=== PATIENT | female | born 1995 | race Caucasian/White ===

== ENCOUNTER 2019-06-16 19:54 | Outpatient (CLI) | payer MEDICAID ==
[2019-06-16 20:31] LABS: AMORPHOUS SEDIMENT,URINE TRACE /HPF; APPEARANCE,URINE CLOUDY; BILIRUBIN,URINE NEGATIVE (NEGATIVE); COLOR,URINE YELLOW; GLUCOSE, URINE NEGATIVE (NEGATIVE); KETONES,URINE NEGATIVE (NEGATIVE); LEUKOCYTE ESTERASE,URINE SMALL (NEGATIVE); NITRITE,URINE POSITIVE (NEGATIVE); PROTEIN,URINE 100 mg/dL (NEGATIVE); URINE SPECIFIC GRAVITY 1.021
[2019-06-16 20:52] LABS: URINE AMPHETAMINES SCREEN NEGATIVE; URINE BARBITURATES SCREEN NEGATIVE; URINE BENZODIAZEPINES SCREEN NEGATIVE; URINE COCAINE SCREEN NEGATIVE; URINE MARIJUANA (THC) SCREEN NEGATIVE; URINE METHADONE SCREEN NEGATIVE; URINE PHENCYCLIDINE SCREEN NEGATIVE
[2019-06-16] MEDS ORDERED: RINGERS SOLUTION,LACTATED 1,000 ML IV PRN (21:18)
[2019-06-16] MEDS ORDERED: CEFTRIAXONE INJ 1000 MG VIAL IV ONE ×2 (21:19→22:00)
[2019-06-16] MEDS ORDERED: RINGERS SOLUTION,LACTATED 1,000 ML IV ONE (22:00)
[2019-06-16 22:04] LABS: BACTERIA (WET MOUNT) 3+ BACTERIA SEEN; RBCS (WET MOUNT) FEW RBCS SEEN; T.VAGINALIS (WET MOUNT) NO TRICHOMONAS SEEN; WBCS (WET MOUNT) 4+ WBCS SEEN; YEAST (WET MOUNT) YEAST SEEN
[2019-06-16] MEDS ORDERED: CEFTRIAXONE INJ 1000 MG VIAL ONE (22:05)
--- NOTE | 2019-06-16 22:35 | RADIOLOGY REPORT (SQ) ---
EXAM DESCRIPTION: US LIMITED COMPLETED DATE/TME: 06/16/2019 00:00 CLINICAL HISTORY: 23 years, Female, Cervical length and APRIL please COMPARISON: None. TECHNIQUE: Limited emergent OB ultrasound LIMITATIONS: None. FINDINGS: There is a single, live intrauterine gestation in the breech presentation. Cervical length is 3.6 cm. Amniotic fluid index is 15.1 cm. The placenta is anterior in location with a grade 1 echotexture and no evidence for previa. heart tones 139 bpm. A detailed anatomic assessment was not performed at this time IMPRESSION: Single, live IUP. Cervical length 3.6 cm. APRIL 15.1 cm. copyright 2010 [employer]- All Rights Reserved
[2019-06-16] MEDS ORDERED: FLUCONAZOLE 100 MG TABLET ONE (23:20)
[2019-06-16 23:26] LABS: CHLAM PCR NOT DETECTED (NOT DETECT)
[2019-06-16] MEDS ORDERED: FLUCONAZOLE 100 MG TABLET PO ONE (23:30)
== END 2019-06-16 23:40 | disposition home or self-care (01) ==
LOC: LC 19:54
PROVIDERS: ATTEND Obstetrics & Gynecology
PROC: 4A1HXCZ Monitoring of Products of Conception, Cardiac Rate, External Approach (ICD-10-PCS; principal; 2019-06-16)
DX: O23.43 Unspecified infection of urinary tract in pregnancy, third trimester (principal); Z3A.28 28 weeks gestation of pregnancy
CPT/HCPCS: 59899; 87086; 87210; 81001; 80307; 87491; 87591; 76815; Q0114; J0696